=== PATIENT | female | born 1930 | race Caucasian/White ===

== ENCOUNTER 2018-04-15 14:36 | Outpatient (CLI) | payer MEDICARE, OTHER ==
[2018-04-15 15:54] LABS: EOSINOPHILS % 1.1 % (0.0-6.8); MEAN CORPUSCULAR HEMOGLOBIN 32.3 pg (28.0-34.0)
[2018-04-15 15:55] LABS: BASOPHILS % 0.5 (0.0-1.5); NEUTROPHILS # 7.6 # k/uL (1.4-7.7)
[2018-04-15 15:59] LABS: eGFR (Non-African) > 60
== END 2018-04-15 14:38 ==
LOC: LAB 14:36
PROVIDERS: ATTEND Family Medicine
DX: R41.82 Altered mental status, unspecified (principal)
CPT/HCPCS: 36415; 80053; 85025

== ENCOUNTER 2018-04-22 10:03 | Outpatient (CLI) | payer MEDICARE ==
--- NOTE | 2018-04-22 14:06 | Diagnostic Imaging Report ---
MICHAEL KAUR [facility] [address] [facility]ly [facility], [facility]–[address] [place], [place]. [address] Report Submission Date: Apr 22, 2018 11:46:51 AM FULLING MILL OPERATOR Patient Study Name: ZULY BRAVO Date: Apr 22, 2018 10:33:07 AM FULLING MILL OPERATOR Modality Type: CT\SR Gender: F Description: CT BRAIN W/O CONTRAST : [birth year] Institution: [facility] Physician: MICHAEL KAUR Examination: CT head without contrast History: SWOLLEN LYMPH NODES syncope. Comparison exam: None available Technique: Noncontrast head CT protocol. Findings: Ventricles and sulci are prominent, though consistent for patient age. Cerebrocerebellar parenchyma demonstrates periventricular low attenuation consistent with small vessel disease. No evidence for parenchymal hemorrhage. No evidence for mass or mass effect. No midline shift. No extra axial fluid collections. Partial visualization of the paranasal sinuses demonstrate scattered mucous thickening. Mastoid air cells, orbits, skull and scalp without gross irregularity. Impression: Age related changes. No acute parenchymal process. No hemorrhage. Electronically signed on Apr 22, 2018 11:46:51 AM FULLING MILL OPERATOR by: Steven MERA
--- NOTE | 2018-04-22 14:07 | Diagnostic Imaging Report ---
MICHAEL KAUR [facility] [address] [facility].[address] [address] Report Submission Date: Apr 22, 2018 12:01:46 PM RESHIPPING CLERK Patient Study Name: ZULY BRAVO Date: Apr 22, 2018 10:38:04 AM RESHIPPING CLERK Modality Type: CT\SR Gender: F Description: CT NECK SOFT TISSUE W/ : [birth year] Institution: [facility] Physician: MICHAEL KAUR Examination: CT neck History: SWOLLEN LYMPH NODES Comparison exams: None provided Technique: CT neck with contrast Findings: Parotid glands demonstrate central enhancing structures bilaterally: right measures 1 cm, left measures 1.8 cm. Submandibular glands are without abnormality. No pathologic adenopathy involving the carotid, jugular and posterior cervical chain regions. Base of the tongue, guillermo pharynx and prevertebral spaces are without abnormality. Trachea and esophagus are midline. No lower cervical chain irregularities. Enlargement of the left thyroid gland. Right thyroid gland diminutive. Significant biapical emphysematous changes. Cervical vertebral body degenerative changes. Paranasal sinus mucus thickening. Skull base structures including brain parenchyma are without abnormality. Extensive vascular calcifications. 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 Enlarged left thyroid gland. Diminutive right thyroid gland. No acute appearing neck inflammatory process. Extensive lung emphysematous changes. Electronically signed on Apr 22, 2018 12:01:46 PM RESHIPPING CLERK by: Steven MERA
== END 2018-04-22 10:05 ==
LOC: RAD 10:03
PROVIDERS: ATTEND Family Medicine
DX: E04.9 Nontoxic goiter, unspecified (principal); R93.89 Abnormal findings on diagnostic imaging of other specified body structures; R59.9 Enlarged lymph nodes, unspecified
CPT/HCPCS: 70450; 70491; Q9967

== ENCOUNTER 2018-11-03 08:41 | Outpatient (CLI) | payer MEDICARE, OTHER ==
[2018-11-03 09:06] LABS: APPEARANCE,URINE CLEAR (CLEAR); COLOR,URINE YELLOW (YELLOW); OCCULT BLOOD,URINE NEGATIVE (NEGATIVE); UROBILINOGEN URINE 0.2 Eu (0.2-1.0)
== END 2018-11-03 08:43 ==
LOC: LAB 08:41
PROVIDERS: ATTEND Family Medicine
DX: I25.10 Atherosclerotic heart disease of native coronary artery without angina pectoris (principal); J44.9 Chronic obstructive pulmonary disease, unspecified; I10 Essential (primary) hypertension; R82.79 Other abnormal findings on microbiological examination of urine
CPT/HCPCS: 81002; 87086